=== PATIENT | male | born 1975 | race Caucasian/White ===

== ENCOUNTER 2019-12-23 13:42 | Observation (INO) | payer BC, OTHER ==
[2019-12-23] MEDS ORDERED: Sodium Chloride 0.9% 10 ML Syringe FLUSH PRN (14:04)
[2019-12-23] MEDS ORDERED: Sodium Chloride 0.9% 2.5 ML Syringe FLUSH PRN ×2 (14:04)
--- NOTE | 2019-12-23 14:09 | EDM.PDOC ---
ED HPI GENERAL MEDICAL PROBLEM - General Chief Complaint: Chest Pain Stated Complaint: CHEST PAIN Time Seen by Provider: 12/23/19 13:50 - History of Present Illness INITIAL COMMENTS - FREE TEXT/NARRATIVE: History of present illness: [] Patient presents with chest pain since yesterday afternoon he describes as a heavy weight on his chest he has some mild shortness of breath some nausea but no vomiting he has some leg pain in the left calf he denies having this type of problem for previous history of hypertension high cholesterol he is a non-smoker he denies anything making it better or worse it has been constant since yeste rd afternoon. Review of systems: As per history of present illness and below otherwise all systems reviewed and negative. Past medical history: As per history of present illness and as reviewed below otherwise noncontributory. Surgical history: As per history of present illness and as reviewed below otherwise noncontributory. Social history: No reported history of drug or alcohol abuse. Family history: As per history of present illness and as reviewed below otherwise noncontributory. Physical exam: HEENT: Atraumatic, normocephalic, pupils reactive, negative for conjunctival pallor or scleral icterus, mucous membranes moist, throat clear, neck supple, nontender, trachea midline. Lungs: Clear to auscultation, breath sounds equal bilaterally, chest nontender. Heart: S1S2, regular, negative for clicks, rubs, or JVD. Abdomen: Soft, nondistended, nontender. Negative for masses or hepatosplenomegaly. Negative for costovertebral tenderness. Pelvis: Stable nontender. Genitourinary: Deferred. Rectal: Deferred. Extremities: Atraumatic, negative for cords there is calf pain in the left calf no obvious swelling. Neurovascular unremarkable. Neuro: Awake, alert, oriented. Cranial nerves II through XII unremarkable. Cerebellum unremarkable. Motor and sensory unremarkable throughout. Exam nonfocal. Diagnostics: [] Therapeutics: [] Impression: Chest pain tachycardic [] Plan: Cardiac work-up with CT angios of the chest due to tachycardia and relative hypoxia. [] Definitive disposition and diagnosis as appropriate pending reevaluation and review of above. Chest Pain Score (Numeric/FACES): 5 - Related Data Allergies Allergy/AdvReac Type Severity Reaction Status Date / Time No Known Allergies Allergy Verified 09/16/17 15:36 Home Meds: Home Meds Blood Pressure Medication 12/23/19 [History] Cholesterol Medication 12/23/19 [History] Past Medical History - Past Health History Medical/Surgical History: Denies Medical/Surgical History HEENT History: Reports: None Cardiovascular History: Reports: High Cholesterol, Hypertension Respiratory History: Reports: None Gastrointestinal History: Reports: None Genitourinary History: Reports: None Musculoskeletal History: Reports: None Neurological History: Reports: None Psychiatric History: Reports: None Endocrine/Metabolic History: Reports: None Hematologic History: Reports: None Immunologic History: Reports: None Oncologic (Cancer) History: Reports: None Dermatologic History: Reports: None - Infectious Disease History Infectious Disease History: Reports: None Social & Family History - Family History Family Medical History: Unobtainable - Tobacco Use Smoking Status *Q: Never Smoker - Caffeine Use Caffeine Use: Reports: None - Recreational Drug Use Recreational Drug Use: No ED ROS GENERAL - Review of Systems Review Of Systems: See Below ED EXAM, GENERAL - Physical Exam Exam: See Below EKG INTERPRETATION EKG Interpretation Comments: EKG is normal sinus rhythm sinus tachycardia at 118 bpm with no harry ischemic changes normal axis read and interpreted by me Course - Vital Signs Text/Narrative:: Patient's one-view portable chest was read and interpreted by me no acute cardiopulmonary pathology is evident. CT angios of the pulmonary arteries was read as negative for pulmonary embolus or other acute pathology by radiology. Patient was reassessed at 3:45 PM his troponin is negative he states he still having substernal chest pain that is pressure-like he still slightly tachycardic will give him some Toprol nitroglycerin and reassess. I recommend flying to my not where they have cardiology and treating this like an unstable angina however the patient absolutely does not want to go to my not at this time and prefers to have a second troponin test checked and some nitro and medication and be reassessed. 2- troponins recommend the patient be transferred to my not for cardiology however patient does not want to go he is pain-free after nitro and metoprolol I discussed the case with Dr. Urban she will admit the patient obs telemetry. Last Recorded V/S: Last Vital Signs Temp 37.2 C 12/23/19 13:50 Pulse 85 12/23/19 17:30 Resp 17 12/23/19 17:30 BP 136/94 H 12/23/19 17:30 Pulse Ox 97 12/23/19 17:30 - Orders/Labs/Meds Orders: Active Orders 24 hr Category Date Time Status EKG Documentation Completion [RC] STAT Care 12/23/19 14:05 Active Nitroglycerin [Nitrostat] Med 12/23/19 16:02 Active 0.4 mg SL Q5M PRN Sodium Chloride 0.9% [Saline Flush] Med 12/23/19 14:04 Active 10 ml FLUSH ASDIRECTED PRN Sodium Chloride 0.9% [Saline Flush] Med 12/23/19 14:04 Active 2.5 ml FLUSH ASDIRECTED PRN Sodium Chloride 0.9% [Saline Flush] Med 12/23/19 14:04 Active 2.5 ml FLUSH ASDIRECTED PRN Saline Lock Insert [OM.PC] Stat Oth 12/23/19 14:04 Ordered Medication Orders Nitroglycerin (Nitrostat) 0.4 mg SL Q5M PRN PRN Reason: Chest Pain Last Admin: 12/23/19 16:03 Dose: 0.4 mg Documented by: LEONIDES Sodium Chloride (Saline Flush) 2.5 ml FLUSH ASDIRECTED PRN PRN Reason: Keep Vein Open Last Admin: 12/23/19 15:58 Dose: 2.5 ml Documented by: ASHUTOSHG Sodium Chloride (Saline Flush) 10 ml FLUSH ASDIRECTED PRN PRN Reason: Keep Vein Open Last Admin: 12/23/19 15:58 Dose: 10 ml Documented by: LEONIDES Sodium Chloride (Saline Flush) 2.5 ml FLUSH ASDIRECTED PRN PRN Reason: Keep Vein Open Last Admin: 12/23/19 15:59 Dose: 2.5 ml Documented by: LEONIDES Labs: Laboratory Tests 12/23/19 12/23/19 12/23/19 Range/Units 13:48 13:48 17:29 WBC 8.66 (4.0-11.0) K/uL RBC 4.72 (4.50-5.90) M/uL Hgb 15.6 (13.0-17.0) g/dL Hct 43.4 (38.0-50.0) % MCV 91.9 (80.0-98.0) fL MCH 33.1 H (27.0-32.0) pg MCHC 35.9 (31.0-37.0) g/dL RDW Std Deviation 41.6 (28.0-62.0) fl RDW Coeff of Rubin 12 (11.0-15.0) % Plt Count 265 (150-400) K/uL MPV 9.00 (7.40-12.00) fL Neut % (Auto) 74.8 (48.0-80.0) % Lymph % (Auto) 16.7 (16.0-40.0) % Ware % (Auto) 7.7 (0.0-15.0) % Eos % (Auto) 0.3 (0.0-7.0) % Baso % (Auto) 0.5 (0.0-1.5) % Neut # (Auto) 6.5 H (1.4-5.7) K/uL Lymph # (Auto) 1.5 (0.6-2.4) K/uL Ware # (Auto) 0.7 (0.0-0.8) K/uL Eos # (Auto) 0.0 (0.0-0.7) K/uL Baso # (Auto) 0.0 (0.0-0.1) K/uL Nucleated RBC % 0.0 /100WBC Nucleated RBCs # 0 K/uL Sodium 135 L (136-148) mmol/L Potassium 3.4 L (3.5-5.1) mmol/L Chloride 99 (98-107) mmol/L Carbon Dioxide 24.9 (21.0-32.0) mmol/L BUN 14 (7.0-18.0) mg/dL Creatinine 1.0 (0.8-1.3) mg/dL Est Cr Clr Drug Dosing 89.30 mL/min Estimated GFR (MDRD) > 60.0 ml/min Glucose 109 H (74-106) mg/dL Calcium 8.8 (8.5-10.1) mg/dL Total Bilirubin 0.7 (0.2-1.0) mg/dL AST 50 H (15-37) IU/L ALT 68 H (14-63) IU/L Alkaline Phosphatase 82 (46-116) U/L Troponin I < 0.050 < 0.050 (0.000-0.056) ng/mL Total Protein 7.4 (6.4-8.2) g/dL Albumin 4.2 (3.4-5.0) g/dL Globulin 3.2 (2.6-4.0) g/dL Albumin/Globulin Ratio 1.3 (0.9-1.6) Meds: Medications Generic Name Dose Route Start Last Admin Trade Name Freq PRN Reason Stop Dose Admin Nitroglycerin 0.4 mg 12/23/19 16:02 12/23/19 16:03 Nitrostat SL 0.4 mg Q5M PRN Administration Chest Pain Sodium Chloride 2.5 ml 12/23/19 14:04 12/23/19 15:58 Saline Flush FLUSH 2.5 ml ASDIRECTED PRN Administration Keep Vein Open Sodium Chloride 10 ml 12/23/19 14:04 12/23/19 15:58 Saline Flush FLUSH 10 ml ASDIRECTED PRN Administration Keep Vein Open Sodium Chloride 2.5 ml 12/23/19 14:04 12/23/19 15:59 Saline Flush FLUSH 2.5 ml ASDIRECTED PRN Administration Keep Vein Open Discontinued Medications Generic Name Dose Route Start Last Admin Trade Name Freq PRN Reason Stop Dose Admin Acetaminophen 1,000 mg 12/23/19 16:11 12/23/19 16:28 Tylenol Extra Strength PO 12/23/19 16:12 1,000 mg ONETIME ONE Administration Aspirin 324 mg 12/23/19 14:55 12/23/19 15:57 Aspirin PO 12/23/19 14:56 324 mg ONETIME ONE Administration Iopamidol 50 ml 12/23/19 14:50 12/23/19 14:51 Isovue Multipack-370 (76%) IVPUSH 12/23/19 14:51 50 ml ONETIME ONE Administration Metoprolol Tartrate 5 mg 12/23/19 16:22 12/23/19 16:25 Lopressor IVPUSH 12/23/19 16:23 5 mg ONETIME ONE Administration Metoprolol Tartrate Confirm 12/23/19 16:24 12/23/19 16:29 Lopressor Administered 12/23/19 16:25 Not Given Dose 5 mg .ROUTE .STK-MED ONE Nitroglycerin 0.4 mg 12/23/19 15:47 12/23/19 15:57 Nitrostat SL 12/23/19 15:48 0.4 mg ONETIME ONE Administration Departure - Departure Time of Disposition: 18:26 Disposition: Refer to Observation Condition: Fair Clinical Impression: Chest pain - Discharge Information *PRESCRIPTION DRUG MONITORING PROGRAM REVIEWED*: Not Applicable *COPY OF PRESCRIPTION DRUG MONITORING REPORT IN PATIENT PETR: Not Applicable Referrals: PCP,None [Primary Care Provider] - Forms: ED Department Discharge Sepsis Event Note (ED) - Evaluation Sepsis Screening Result: No Definite Risk - Focused Exam Vital Signs: Vital Signs Temp Pulse Pulse Resp BP BP Pulse Ox 12/23/19 17:30 85 17 136/94 H 97 12/23/19 17:00 78 17 130/89 98 12/23/19 16:45 84 17 137/88 98 12/23/19 16:25 105 H 140/88 12/23/19 16:09 139 H 18 138/83 96 12/23/19 16:03 150/92 H 12/23/19 15:57 150/100 H 12/23/19 15:45 108 H 17 152/103 H 95 12/23/19 15:15 98 18 133/92 H 98 12/23/19 14:15 109 H 18 131/83 95 12/23/19 14:00 111 H 18 140/90 97 12/23/19 13:50 37.2 C 117 H 18 162/111 H 96 - My Orders Last 24 Hours: My Active Orders 12/23/19 14:04 Sodium Chloride 0.9% [Saline Flush] 10 ml FLUSH ASDIRECTED PRN Sodium Chloride 0.9% [Saline Flush] 2.5 ml FLUSH ASDIRECTED PRN Sodium Chloride 0.9% [Saline Flush] 2.5 ml FLUSH ASDIRECTED PRN Saline Lock Insert [OM.PC] Stat 12/23/19 14:05 EKG Documentation Completion [RC] STAT 12/23/19 16:02 Nitroglycerin [Nitrostat] 0.4 mg SL Q5M PRN - Assessment/Plan Last 24 Hours: My Active Orders 12/23/19 14:04 Sodium Chloride 0.9% [Saline Flush] 10 ml FLUSH ASDIRECTED PRN Sodium Chloride 0.9% [Saline Flush] 2.5 ml FLUSH ASDIRECTED PRN Sodium Chloride 0.9% [Saline Flush] 2.5 ml FLUSH ASDIRECTED PRN Saline Lock Insert [OM.PC] Stat 12/23/19 14:05 EKG Documentation Completion [RC] STAT 12/23/19 16:02 Nitroglycerin [Nitrostat] 0.4 mg SL Q5M PRN
[2019-12-23 14:28] LABS: BLOOD UREA NITROGEN,BUN 14 mg/dL (7.0-18.0); CARBON DIOXIDE,CO2 24.9 mmol/L (21.0-32.0); CHLORIDE,CL 99 mmol/L (98-107); GLUCOSE RANDOM 109 mg/dL (74-106); POTASSIUM,K 3.4 mmol/L (3.5-5.1); SODIUM,NA 135 mmol/L (136-148)
[2019-12-23] MEDS ORDERED: Iopamidol 755 MG/ML 500 ML Multipack Bottle IVPUSH ONE (14:50)
[2019-12-23] MEDS ORDERED: Aspirin 81 MG Tab.Chew PO ONE (14:55)
--- NOTE | 2019-12-23 14:55 | CR ---
INDICATION: Chest pain. TECHNIQUE: AP portable upright chest. COMPARISON: September 15, 2017. FINDINGS: Clear lungs. Normal heart size and pulmonary vascularity. Normal included skeleton. IMPRESSION: Negative chest. Dictated by Gustavo Lennon MD @ Dec 23 2019 2:52PM Signed by Dr. Gustavo Lennon @ Dec 23 2019 2:53PM
--- NOTE | 2019-12-23 15:35 | CT ---
INDICATION : 44-year-old male. Chest pain. TECHNIQUE: Contrast-enhanced chest CT. 50 cc nonionic Isovue-370 administered. Examination is performed using the angiographic protocol. FINDINGS: No evidence for thoracic or proximal abdominal aortic aneurysm or dissection. Adequate but not optimal opacification of the pulmonary arterial tree. No overt evidence for filling defects to indicate acute pulmonary emboli. Both lungs are expanded without pneumothoraces nodules or infiltrates. There are no pleural or pericardial effusions. The trachea and mainstem bronchi are patent and clear. Coronary artery calcifications compatible with coronary arterial disease. This is best appreciated within the left main and left anterior descending coronary arteries. Images of the upper abdomen demonstrate normal adrenal glands. No splenomegaly. Possible hepatic fatty infiltration. The skeleton is within normal limits without fractures. IMPRESSION: 1. No acute cardiopulmonary process identified. 2. Coronary artery calcification. Please note that all CT scans at this facility use dose modulation, iterative reconstruction, and/or weight-based dosing when appropriate to reduce radiation dose to as low as reasonably achievable. Dictated by Gustavo Lennon MD @ Dec 23 2019 3:33PM Signed by Dr. Gustavo Lennon @ Dec 23 2019 3:33PM
[2019-12-23] MEDS ORDERED: Metoprolol Tartrate 5 MG in Sodium Chloride 0.9% 50 ML IV ONE (15:47)
[2019-12-23] MEDS ORDERED: Nitroglycerin 0.4 MG Tab.SL SL ONE (15:47)
[2019-12-23] MEDS ORDERED: Nitroglycerin 0.4 MG Tab.SL SL PRN (16:02)
[2019-12-23] MEDS ORDERED: Acetaminophen 500 MG Tab PO ONE (16:11)
[2019-12-23] MEDS ORDERED: Metoprolol Tartrate 5 MG/5 ML SDV IVPUSH ONE (16:22)
[2019-12-23] MEDS ORDERED: Metoprolol Tartrate 5 MG/5 ML SDV ONE (16:24)
[2019-12-23] MEDS ORDERED: Enoxaparin 100 MG/1 ML Syringe SUBCUT ONE (18:54)
--- NOTE | 2019-12-23 19:28 | PCM.HP.2 ---
H&P History of Present Illness - General Date of Service: 12/23/19 Admit Problem/Dx: Admission Diagnosis/Problem Admission Diagnosis/Problem Chest pain Source of Information: Patient History Limitations: Reports: No Limitations - History of Present Illness Initial Comments - Free Text/Narative: Patient is a 44-year-old male with a significant past medical history of hypertension, hyperlipidemia presenting to the ED this afternoon for chest pain, described as a pressure sensation accompanied with shortness of breath and nausea without vomiting; beginning yesterday afternoon. Patient also endorsed to the ED provider having some left calf pain. ED course: Received full dose aspirin Chest x-ray: Negative CT angios: Negative for any acute pulmonary emboli. Positive for coronary artery calcification Troponin x2- 2 doses of sublingual nitroglycerin given along with 1 g of Tylenol. 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 Denies any smoking history, ilicit drug use or excess ETOH Chest Pain Score (Numeric/FACES): 5 - Related Data Allergies/Adverse Reactions: Allergies Allergy/AdvReac Type Severity Reaction Status Date / Time No Known Allergies Allergy Verified 09/16/17 15:36 Home Medications: Home Meds Blood Pressure Medication 12/23/19 [History] Cholesterol Medication 12/23/19 [History] Past Medical History - Past Health History Medical/Surgical History: Denies Medical/Surgical History HEENT History: Reports: None Cardiovascular History: Reports: High Cholesterol, Hypertension Respiratory History: Reports: None Gastrointestinal History: Reports: None Genitourinary History: Reports: None Musculoskeletal History: Reports: None Neurological History: Reports: None Psychiatric History: Reports: None Endocrine/Metabolic History: Reports: None Hematologic History: Reports: None Immunologic History: Reports: None Oncologic (Cancer) History: Reports: None Dermatologic History: Reports: None - Infectious Disease History Infectious Disease History: Reports: None Social & Family History - Family History Family Medical History: Unobtainable - Tobacco Use Smoking Status *Q: Never Smoker - Caffeine Use Caffeine Use: Reports: None - Recreational Drug Use Recreational Drug Use: No H&P Review of Systems - Review of Systems: Review Of Systems: See Below General: Reports: No Symptoms HEENT: Reports: No Symptoms Pulmonary: Denies: Shortness of Breath, Wheezing, Pleuritic Chest Pain, Cough Cardiovascular: Reports: Blood Pressure Problem. Denies: Chest Pain, Palpitations, Dyspnea on Exertion, Edema, Lightheadedness, Syncope Gastrointestinal: Reports: Nausea. Denies: Abdominal Pain, Constipation, Diarrhea, Vomiting Genitourinary: Reports: No Symptoms Musculoskeletal: Reports: Leg Pain Skin: Reports: No Symptoms Psychiatric: Reports: No Symptoms Exam - Exam Exam: See Below - Vital Signs Vital Signs: Last Vital Signs Temp 98.9 F 12/23/19 13:50 Pulse 85 12/23/19 17:30 Resp 17 12/23/19 17:30 BP 136/94 H 12/23/19 17:30 Pulse Ox 97 12/23/19 17:30 Weight: 74.843 kg - Exam Quality Assessment: Supplemental Oxygen General: Alert, Oriented, Cooperative HEENT: EOMI, Mucosa Moist & Guinda Neck: Supple, Trachea Midline Lungs: Clear to Auscultation, Normal Respiratory Effort Cardiovascular: Regular Rhythm, Tachycardia GI/Abdominal Exam: Soft, Non-Tender Back Exam: Normal Inspection Extremities: Other (Left calf tenderness; negative homans sign howeverl ) Neurological: Cranial Nerves Intact Neuro Extensive - Mental Status: Alert, Oriented x3, Normal Mood/Affect Neuro Extensive - Motor, Sensory, Reflexes: CN II-XII Intact, Normal Gait - Patient Data Lab Results Last 24 hrs: Laboratory Results - last 24 hr 12/23/19 12/23/19 12/23/19 Range/Units 13:48 13:48 17:29 WBC 8.66 (4.0-11.0) K/uL RBC 4.72 (4.50-5.90) M/uL Hgb 15.6 (13.0-17.0) g/dL Hct 43.4 (38.0-50.0) % MCV 91.9 (80.0-98.0) fL MCH 33.1 H (27.0-32.0) pg MCHC 35.9 (31.0-37.0) g/dL RDW Std Deviation 41.6 (28.0-62.0) fl RDW Coeff of Rubin 12 (11.0-15.0) % Plt Count 265 (150-400) K/uL MPV 9.00 (7.40-12.00) fL Neut % (Auto) 74.8 (48.0-80.0) % Lymph % (Auto) 16.7 (16.0-40.0) % Osborne % (Auto) 7.7 (0.0-15.0) % Eos % (Auto) 0.3 (0.0-7.0) % Baso % (Auto) 0.5 (0.0-1.5) % Neut # (Auto) 6.5 H (1.4-5.7) K/uL Lymph # (Auto) 1.5 (0.6-2.4) K/uL Osborne # (Auto) 0.7 (0.0-0.8) K/uL Eos # (Auto) 0.0 (0.0-0.7) K/uL Baso # (Auto) 0.0 (0.0-0.1) K/uL Nucleated RBC % 0.0 /100WBC Nucleated RBCs # 0 K/uL Sodium 135 L (136-148) mmol/L Potassium 3.4 L (3.5-5.1) mmol/L Chloride 99 (98-107) mmol/L Carbon Dioxide 24.9 (21.0-32.0) mmol/L BUN 14 (7.0-18.0) mg/dL Creatinine 1.0 (0.8-1.3) mg/dL Est Cr Clr Drug Dosing 89.30 mL/min Estimated GFR (MDRD) > 60.0 ml/min Glucose 109 H (74-106) mg/dL Calcium 8.8 (8.5-10.1) mg/dL Total Bilirubin 0.7 (0.2-1.0) mg/dL AST 50 H (15-37) IU/L ALT 68 H (14-63) IU/L Alkaline Phosphatase 82 (46-116) U/L Troponin I < 0.050 < 0.050 (0.000-0.056) ng/mL Total Protein 7.4 (6.4-8.2) g/dL Albumin 4.2 (3.4-5.0) g/dL Globulin 3.2 (2.6-4.0) g/dL Albumin/Globulin Ratio 1.3 (0.9-1.6) Result Diagrams: 12/23/19 13:48 12/23/19 13:48 Sepsis Event Note - Evaluation Sepsis Screening Result: No Definite Risk - Focused Exam Vital Signs: Vital Signs Temp Pulse Pulse Resp BP BP Pulse Ox 12/23/19 17:30 85 17 136/94 H 97 12/23/19 17:00 78 17 130/89 98 12/23/19 16:45 84 17 137/88 98 12/23/19 16:25 105 H 140/88 12/23/19 16:09 139 H 18 138/83 96 12/23/19 16:03 150/92 H 12/23/19 15:57 150/100 H 12/23/19 15:45 108 H 17 152/103 H 95 12/23/19 15:15 98 18 133/92 H 98 12/23/19 14:15 109 H 18 131/83 95 12/23/19 14:00 111 H 18 140/90 97 12/23/19 13:50 98.9 F 117 H 18 162/111 H 96 Problem List Initiated/Reviewed/Updated: Yes Orders Last 24hrs: Active Orders 24 hr Category Date Time Status Admission Status [Patient Status] [ADT] Stat ADT 12/23/19 18:31 Active EKG Documentation Completion [RC] STAT Care 12/23/19 14:05 Active CORONAVIRUS COVID-19 BATSHEVA [MOLEC] Stat Lab 12/23/19 18:43 Received Nitroglycerin [Nitrostat] Med 12/23/19 16:02 Active 0.4 mg SL Q5M PRN Sodium Chloride 0.9% [Saline Flush] Med 12/23/19 14:04 Active 10 ml FLUSH ASDIRECTED PRN Sodium Chloride 0.9% [Saline Flush] Med 12/23/19 14:04 Active 2.5 ml FLUSH ASDIRECTED PRN Sodium Chloride 0.9% [Saline Flush] Med 12/23/19 14:04 Active 2.5 ml FLUSH ASDIRECTED PRN Saline Lock Insert [OM.PC] Stat Oth 12/23/19 14:04 Ordered Medication Orders Nitroglycerin (Nitrostat) 0.4 mg SL Q5M PRN PRN Reason: Chest Pain Last Admin: 12/23/19 16:03 Dose: 0.4 mg Documented by: LEONIDES Sodium Chloride (Saline Flush) 2.5 ml FLUSH ASDIRECTED PRN PRN Reason: Keep Vein Open Last Admin: 12/23/19 15:58 Dose: 2.5 ml Documented by: LEONIDES Sodium Chloride (Saline Flush) 10 ml FLUSH ASDIRECTED PRN PRN Reason: Keep Vein Open Last Admin: 12/23/19 15:58 Dose: 10 ml Documented by: LEONIDES Sodium Chloride (Saline Flush) 2.5 ml FLUSH ASDIRECTED PRN PRN Reason: Keep Vein Open Last Admin: 12/23/19 15:59 Dose: 2.5 ml Documented by: LEONIDES Assessment/Plan Comment:: Assessment: 1. CP w. ACS rule out 2. Hypokalemia 3. Transaminitis 4. PMH: HTN, HLD Plan. Admit to observation. Full code. i/o's per routine Vitals per routine UP ad calli GI: pantoprazole DVT: scd/received enoxaparin 100 in ED COVID negative 1. Troponin x [address] angio negative for P/E EKG: Sinus tachycardia (received 5 Lopressor); abnormal r-wave progression; however negative ct-angio Labs reassuring otherwise Check TSH, Lipid panel, and A1c K: 40 meq given now ; recheck in AM Pain control: morphine 1 q 3hours PRN Continue to monitor on telemetry. Hypoxia: maintain sats >94% CXR negative for any acute processes
[2019-12-23] MEDS ORDERED: Melatonin 3 MG Tab PO PRN (20:12)
[2019-12-23] MEDS ORDERED: Morphine 2 MG/ML SYRINGE IVPUSH PRN (20:12)
[2019-12-23] MEDS ORDERED: Potassium Chloride 20 MEQ Tab.ER PO ONE (20:15)
[2019-12-24 06:50] LABS: HEMOGLOBIN A1C 5.7 % (4.5-6.2)
[2019-12-24 06:57] LABS: BLOOD UREA NITROGEN,BUN 12 mg/dL (7.0-18.0); CARBON DIOXIDE,CO2 29.4 mmol/L (21.0-32.0); CHLORIDE,CL 105 mmol/L (98-107); GLUCOSE RANDOM 100 mg/dL (74-106); POTASSIUM,K 4.4 mmol/L (3.5-5.1); SODIUM,NA 140 mmol/L (136-148)
[2019-12-24] MEDS ORDERED: Pantoprazole 40 MG Tab.CR PO SCH (09:00)
[2019-12-24] MEDS ORDERED: Aspirin 81 MG Tab.Chew PO SCH (09:00)
[2019-12-24] MEDS ORDERED: Enoxaparin 40 MG/0.4 ML Syringe SUBCUT ONE (20:13)
[2019-12-24] MEDS ORDERED: atorvaSTATin 20 MG Tab PO SCH (21:00)
--- NOTE | 2019-12-24 21:55 | PCM.DCSUM1 ---
Discharge Summary - Hospital Course Free Text/Narrative:: 44-year-old male admitted for observation for chest pain. Patient has a past medical history of hypertension and hyperlipidemia. Patient states that prior to admission he was having dizziness, lightheadedness episodes, chest pain shortness of breath and nausea for a few days which got worse prior to admission. Patients states that he has not been complaint with his medications, lisinopril/HCTZ and Lipitor. Patients chest x-ray and cta were negative for cardiopulmonary disease or pulmonary emboli. Troponin were negative. Patient discharged the next day and told to resume home medications. - Discharge Data Discharge Date: 12/24/19 Discharge Disposition: Home, Self-Care 01 Condition: Fair - Referral to Home Health Primary Care Physician: PCP None - Discharge Plan *PRESCRIPTION DRUG MONITORING PROGRAM REVIEWED*: Not Applicable *COPY OF PRESCRIPTION DRUG MONITORING REPORT IN PATIENT PETR: Not Applicable Home Medications: Home Meds Lisinopril/Hydrochlorothiazide [Lisinopril-HCTZ 10-12.5 MG] 1 tab PO DAILY 12/23/19 [History] atorvaSTATin [Lipitor] 40 mg PO DAILY 12/23/19 [History] Patient Handouts: Nonspecific Chest Pain, Adult, [id number] Referrals: Marquez Read MD [Resident] - - Discharge Summary/Plan Comment DC Time >30 min.: No - Review of Systems General: Denies: Fever, Weakness, Fatigue Pulmonary: Denies: Shortness of Breath, Pleuritic Chest Pain, Cough Cardiovascular: Denies: Chest Pain, Palpitations, Dyspnea on Exertion, Ligh theadedness Gastrointestinal: Denies: Abdominal Pain, Decreased Appetite, Nausea Musculoskeletal: Denies: Back Pain Neurological: Denies: Confusion, Dizziness, Headache, Numbness, Syncope - Patient Data Vitals - Most Recent: Last Vital Signs Temp 96.3 F L 12/24/19 12:00 Pulse 88 12/24/19 12:00 Resp 16 12/24/19 12:00 BP 137/88 12/24/19 12:00 Pulse Ox 95 12/24/19 12:00 Weight - Most Recent: 166 lb 1.6 oz I&O - Last 24 hours: Intake & Output 12/24/19 12/24/19 12/24/19 06:59 14:59 22:59 Intake Total 400 600 Output Total 500 Balance 400 100 Lab Results - Last 24 hrs: Laboratory Results - last 24 hr 12/24/19 12/24/19 12/24/19 Range/Units 06:10 06:10 06:10 WBC 5.85 (4.0-11.0) K/uL RBC 4.38 L (4.50-5.90) M/uL Hgb 14.3 (13.0-17.0) g/dL Hct 41.3 (38.0-50.0) % MCV 94.3 (80.0-98.0) fL MCH 32.6 H (27.0-32.0) pg MCHC 34.6 (31.0-37.0) g/dL RDW Std Deviation 42.1 (28.0-62.0) fl RDW Coeff of Rubin 12 (11.0-15.0) % Plt Count 227 (150-400) K/uL MPV 9.20 (7.40-12.00) fL Neut % (Auto) 56.3 (48.0-80.0) % Lymph % (Auto) 28.4 (16.0-40.0) % [place] % (Auto) 12.1 (0.0-15.0) % Eos % (Auto) 2.7 (0.0-7.0) % Baso % (Auto) 0.5 (0.0-1.5) % Neut # (Auto) 3.3 (1.4-5.7) K/uL Lymph # (Auto) 1.7 (0.6-2.4) K/uL [place] # (Auto) 0.7 (0.0-0.8) K/uL Eos # (Auto) 0.2 (0.0-0.7) K/uL Baso # (Auto) 0.0 (0.0-0.1) K/uL Nucleated RBC % 0.0 /100WBC Nucleated RBCs # 0 K/uL Sodium 140 (136-148) mmol/L Potassium 4.4 (3.5-5.1) mmol/L Chloride 105 (98-107) mmol/L Carbon Dioxide 29.4 (21.0-32.0) mmol/L BUN 12 (7.0-18.0) mg/dL Creatinine 0.9 (0.8-1.3) mg/dL Est Cr Clr Drug Dosing 99.22 mL/min Estimated GFR (MDRD) > 60.0 ml/min Glucose 100 (74-106) mg/dL Hemoglobin A1c 5.7 (4.5-6.2) % Calcium 8.2 L (8.5-10.1) mg/dL Total Bilirubin 0.5 (0.2-1.0) mg/dL AST 36 (15-37) IU/L ALT 51 (14-63) IU/L Alkaline Phosphatase 66 (46-116) U/L Total Protein 6.2 L (6.4-8.2) g/dL Albumin 3.3 L (3.4-5.0) g/dL Globulin 2.9 (2.6-4.0) g/dL Albumin/Globulin Ratio 1.1 (0.9-1.6) Med Orders - Current: Current Medications Discontinued Medications Acetaminophen (Tylenol Extra Strength) 1,000 mg PO ONETIME ONE Stop: 12/23/19 16:12 Last Admin: 12/23/19 16:28 Dose: 1,000 mg Documented by: Aspirin (Aspirin) 324 mg PO ONETIME ONE Stop: 12/23/19 14:56 Last Admin: 12/23/19 15:57 Dose: 324 mg Documented by: Aspirin (Aspirin) 81 mg PO DAILY NAHOMY Last Admin: 12/24/19 08:16 Dose: 81 mg Documented by: Atorvastatin Calcium (Lipitor) 20 mg PO BEDTIME NAHOMY Enoxaparin Sodium (Lovenox) 100 mg SUBCUT ONETIME ONE Stop: 12/23/19 18:55 Last Admin: 12/23/19 20:34 Dose: 100 mg Documented by: Enoxaparin Sodium (Lovenox) 40 mg SUBCUT DAILY ONE Stop: 12/24/19 20:14 Iopamidol (Isovue Multipack-370 (76%)) 50 ml IVPUSH ONETIME ONE Stop: 12/23/19 14:51 Last Admin: 12/23/19 14:51 Dose: 50 ml Documented by: Melatonin (Melatonin) 3 mg PO BEDTIME PRN PRN Reason: Insomnia Metoprolol Tartrate (Lopressor) 5 mg IVPUSH ONETIME ONE Stop: 12/23/19 16:23 Last Admin: 12/23/19 16:25 Dose: 5 mg Documented by: Metoprolol Tartrate (Lopressor) Confirm Administered Dose 5 mg .ROUTE .STK-MED ONE Stop: 12/23/19 16:25 Last Admin: 12/23/19 16:29 Dose: Not Given Documented by: Morphine Sulfate (Morphine) 1 mg IVPUSH Q3H PRN PRN Reason: Pain Nitroglycerin (Nitrostat) 0.4 mg SL ONETIME ONE Stop: 12/23/19 15:48 Last Admin: 12/23/19 15:57 Dose: 0.4 mg Documented by: Nitroglycerin (Nitrostat) 0.4 mg SL Q5M PRN PRN Reason: Chest Pain Last Admin: 12/23/19 16:03 Dose: 0.4 mg Documented by: Pantoprazole Sodium (Protonix) 40 mg PO DAILY NAHOMY Last Admin: 12/24/19 08:16 Dose: 40 mg Documented by: Potassium Chloride (Klor-Con M20) 40 meq PO ONETIME ONE Stop: 12/23/19 20:16 Last Admin: 12/23/19 20:33 Dose: 40 meq Documented by: Sodium Chloride (Saline Flush) 2.5 ml FLUSH ASDIRECTED PRN PRN Reason: Keep Vein Open Last Admin: 12/23/19 15:58 Dose: 2.5 ml Documented by: Sodium Chloride (Saline Flush) 10 ml FLUSH ASDIRECTED PRN PRN Reason: Keep Vein Open Last Admin: 12/23/19 15:58 Dose: 10 ml Documented by: Sodium Chloride (Saline Flush) 2.5 ml FLUSH ASDIRECTED PRN PRN Reason: Keep Vein Open Last Admin: 12/23/19 15:59 Dose: 2.5 ml Documented by: - Exam General: Reports: Alert, Oriented Neck: Reports: Supple Lungs: Reports: Clear to Auscultation, Normal Respiratory Effort Cardiovascular: Reports: Regular Rate, Regular Rhythm GI/Abdominal Exam: Soft, Non-Tender, No Distention Extremities: Normal Inspection, No Pedal Edema Skin: Reports: Warm, Dry Neurological: Reports: Normal Speech, Strength Equal Bilateral, Sensation Intact Psy/Mental Status: Reports: Alert
== END 2019-12-24 13:10 | disposition home or self-care (01) ==
LOC: MW.ED 13:42 → MW.MS 18:31
PROVIDERS: ADMIT Student in an Organized Health Care Education/Training Program; ATTEND Student in an Organized Health Care Education/Training Program
DX: R07.89 Other chest pain (principal); E78.00 Pure hypercholesterolemia, unspecified; R06.02 Shortness of breath; R42 Dizziness and giddiness; I10 Essential (primary) hypertension; E78.5 Hyperlipidemia, unspecified; R00.0 Tachycardia, unspecified; E87.6 Hypokalemia; R74.0 Nonspecific elevation of levels of transaminase and lactic acid dehydrogenase [LDH]; R09.02 Hypoxemia; Z20.828 Contact with and (suspected) exposure to other viral communicable diseases; Z79.899 Other long term (current) drug therapy
CPT/HCPCS: 36415; 71045; 71275; 80053; 80061; 83036; 83735; 84443; 84484; 85025; 87635; 93005; 96372; 96374; 99285; A9270; G0378; J1650; J3490; Q9967; 99284; U0002